=== PATIENT | female | born 1950 | race African-American/Black ===

== ENCOUNTER 2017-01-25 11:00 | Day surgery (SDC) | payer BC ==
[~2017-01-25] VITALS: Ht 167.6 cm; Wt 110.0 kg
[2017-01-25] VITALS (9 sets, daily range): BP systolic 132–178; BP diastolic 84–97; PULSE 68–82; RESP 16–20; TEMP 98–98.9; O2SAT 97–100
[~2017-01-25 11:00] MED LIST: CLON0.2T PO; FEMA2.5T PO; LABE200T2 PO; LISI10TA PO; LORA-392 PO; NIFE1TAB86 PO; OXYC5 PO; VITA200017 OR
[2017-01-25] MEDS ORDERED: METO-338 PO (11:57)
[2017-01-25] MEDS ORDERED: LETR2.5T (11:57)
[2017-01-25] MEDS ORDERED: CLON0.2T PO (11:57)
[2017-01-25] MEDS ORDERED: HYDR25TA5 PO (11:57)
[2017-01-25] MEDS ORDERED: TRIA37.5 PO (11:57)
[2017-01-25] MEDS ORDERED: ASPI81CH CHEW (11:57)
[2017-01-25] MEDS ORDERED: AMLO5 PO (11:57)
[2017-01-25] MEDS ORDERED: VENL225T PO (11:57)
[2017-01-25] MEDS ORDERED: HYDR-3801 PO (11:57)
[2017-01-25] MEDS ORDERED: VALS1TAB70 PO (11:57)
[2017-01-25 12:07] LABS: AUTOMATED NEUTROPHIL # 7.7 TH/MM3 (1.8-7.7); BASOPHIL # 0.1 TH/MM3 (0-0.2); BASOPHIL % 0.5 % (0.0-2.0); EOSINOPHIL # 0.1 TH/MM3 (0-0.4); EOSINOPHIL % 0.8 % (0.0-4.0); HEMATOCRIT 37.9 % (35.0-46.0); HEMO FLAGS DIFF FINAL; LYMPH % 18.1 % (9.0-44.0); LYMPHOCYTE # 1.8 TH/MM3 (1.0-4.8); MEAN CELL VOLUME 76.6 FL (80.0-100.0); MEAN CORPUSCULAR HEMOGLOBIN 25.3 PG (27.0-34.0); NEUT % 76.6 % (16.0-70.0); PLATELET COUNT 347 TH/MM3 (150-450); RED BLOOD COUNT 4.95 MIL/MM3 (4.00-5.30); RED CELL DISTRIBUTION WIDTH 17.3 % (11.6-17.2); WHITE BLOOD COUNT 10.1 TH/MM3 (4.0-11.0)
[2017-01-25 12:15] LABS: PROTHROMBIN TIME - PATIENT 10.7 SEC (9.8-11.6)
[2017-01-25 12:39] LABS: BICARBONATE 25.2 MEQ/L (21.0-32.0)
[2017-01-25 12:40] LABS: POTASSIUM 5.1 MEQ/L (3.5-5.1)
[2017-01-25] MEDS ORDERED: HEPARIN-NS/PF INJ 500 ML ONE (13:15)
[2017-01-25] MEDS ORDERED: MIDAZOLAM HCL 2 MG/2 ML VIAL ONE ×3 (13:17→14:03)
[2017-01-25] MEDS ORDERED: HEPARIN SODIUM - IV 10,000 UNITS/10 ML VIAL ONE (13:40)
[2017-01-25] MEDS ORDERED: CLOPIDOGREL 300 MG TAB ONE (14:03)
[2017-01-25] MEDS ORDERED: TIROFIBAN INFUSION INJ 250 ML IV ONE (14:03)
[2017-01-25] MEDS ORDERED: MISC INFORMATION XX ONE (14:15)
[2017-01-25] MEDS ORDERED: SODIUM CHLORIDE 0.9% FLUSH 10 ML FLUSH IV FLUSH PRN (14:15)
--- NOTE | 2017-01-25 14:29 | CATHPROC ---
[facility] HIS Report Study Information Study Number Admission Scheduled Start Study Start [id number] Jan 25 2017 11:00AM 01/25/2017 Jan 25 2017 1:07PM [place] [facility] Cardiac Catheterization Admit Source Facility Department Other [facility] - Covered [facility] Physician and Clinical Staff Initial Camacho Sterling Cinder Worker Adriana Lopez,RN Recorder Obed Leahy RCIS(BS) Scrub Sohail Craig RCIS(BS) Procedures Performed Procedure Location (Site) Vessel Name Coronary Angiograms LCA Left Coronary Coronary Angiograms RCA Right Coronary Drug Eluting Inflatio RCA Mid Right Coronary LV Gram-hand inj. LV LV Ventricle PTCA RCA Mid Right Coronary Wire insertion Fem Art (right) Femoral Art Equipment Time Pattern Layout Worker Description Size Mfg Part Number Used/Scraped [id number] 13:42 [employer] WIRE, [place] PROWATER 180CM 180CM Used *[id number] CATHETER, FR5 SWAN MAMTA 13:23 MEJIA LOPEZ FR 5 [id number] *[id number] Used MONITOR TRANSDUCER, TRUWAVE [id number] 13:23 MEJIA LOPEZ * Used W/STOCKCOCK *[id number] [id number] *[id number] 538-422 *[id number] *[id number] [id number] *[id number] 13:23 MEDLINE INDUSTRIES PACK, CCL CUSTOM * Used *[id number] 13:23 MEDLINE PACER PEN, SKIN DUAL W/ RULER * Used *[id number] 13:53 MEDTRONIC BALLOON, 1.5 X 10MM EUPHORA 10MM Used *[id number] 13:50 MEDTRONIC BALLOON, 2.0 X 10MM EUPHORA 10MM Used *[id number] BALLOON, 2.25 X 10MM [id number] 13:45 MEDTRONIC 10MM Used EUPHORA *[id number] 14:01 MEDTRONIC STENT, 2.5 12 INTEGRITY 2.5 12 Used *[id number] 13:43 MEDTRONIC STENT, 2.5 8 INTEGRITY 2.5 8 Used *[id number] 13:55 [employer]upon MEDICAL 30 HARDIK INDEFLATOR Used *[id number] 13:23 [employer] MEDICAL SHEATH, FR5.5 PRELUDE 11CM FR 5.5 Used [id number] 13:43 [employer] MEDICAL SHEATH, FR6.5 PRELUDE 11CM FR 6.5 038ACT Used *[id number] 13:23 [employer] MEDICAL WIRE, 3MMJ .035 180CM 180CM Used *[id number] 13:23 NAMIC MANIFOLD, 4 PORT * Used *[id number] 13:23 NYCOMED OMNIPAQUE, 350 MG, 150ML 150ML [id number] Used [id number] 13:23 MAGUIRE MEDICAL BLANKET,WARM AIR CCL * Used *[id number] 13:23 TERUMO MEDICAL SHEATH, FR4 TERUMO (10CM) FR 4 [id number] Used Equipment Model, Serial, Lot Number and Expiration Data Description Model Number Serial Number Lot Number Expiration Date STENT, 2.5 12 INTEGRITY [id number] 09-15-2018 History: Current Medications Medication Dosage/Unit Route Frequency Last Date/Time Taken Beta Keisha ASA Statins (any) History: Allergies Allergy Reaction No Known Allergies NKA History: Risk Factors Family History of Hypertension Dyslipidemia Previous [place] Previous Heart Failure Premature CAD Yes Yes No No Yes Prior Valve Prior PCI Prior CABG Surgery No No No Cerebrovascular Peripheral Artery Chronic Lung On Dialysis Diabetes Disease Disease Disease No No No No No History: Symptoms/Diagnosis Selection Items Chest pain History: Stress Tests Stress or Imaging Studies Performed No History: Other Current Smoker No Labs Hgb (g/dl) Hct (%) RBC (MIL/MM3) WBC (l/cumm) Platelets (thousands) 11.60-17.00 35.00-51.00 4.00-5.90 4.00-11.00 150.00-450.00 12.5 37.9 4.9 10.1 347 Glucose (mg/dl) BUN (mg/dl) Creatinine (mg/dl) BUN:Creatinine (1:x) 74.00-106.00 7.00-18.00 0.50-1.30 10.00-20.00 239 26 1.0 26 Na (meq/l) K (meq/l) 136.00-145.00 3.50-5.10 137 5.1 CPK-MB (ng/ML) 0.50-3.60 Not Drawn Medication Medication Total Dose (Bolus/Oral) Medication Total Dosage/Unit 1% XYLOCAINE 20 mL AGGRASTAT BOLUS 54 meq/kg HEPARIN 7800 units NTG (IC) 200 mcg PLAVIX 600 mg VERSED 6 mg Medications (Bolus/Oral) Medication Time Given Dosage/Unit Administered By Reason VERSED 01/25/2017 1:26:00 PM 2 mg William Lopeza 2 mg VERSED given in lab by Adriana Lopez RN in Right Wrist via Peripheral IV. Ordered by Camacho Martell. 1% XYLOCAINE 01/25/2017 1:27:26 PM 20 mL Camacho Ch 20 mL 1% XYLOCAINE given in lab by Camacho Ch in Right Groin via Subcutaneous. Ordered by Camacho Esposito. VERSED 01/25/2017 1:37:14 PM 1 mg Stephen Lopezantha 1 mg VERSED given in lab by Adriana Lopez RN in Right Wrist via Peripheral IV. Ordered by Camacho Martell. HEPARIN 01/25/2017 1:41:40 PM 7800 units William Lopeza 7800 units HEPARIN given in lab by Adriana Lopez RN in Right Wrist via Peripheral IV. Ordered by Camacho Ch. VERSED 01/25/2017 1:42:54 PM 1 mg Stephen Lopezantha 1 mg VERSED given in lab by Adriana Lopez RN in Right Wrist via Peripheral IV. Ordered by Camacho Martell. VERSED 01/25/2017 1:43:00 PM 1 mg John, Adriana 1 mg VERSED given in lab by Adriana Lopez RN in Right Wrist via Peripheral IV. Ordered by Camacho Martell. NTG (IC) 01/25/2017 1:46:32 PM 200 mcg Camacho Ch 200 mcg NTG (IC) given in lab by Camacho Ch via Intra-coronary. Ordered by Camacho Ch. VERSED 01/25/2017 2:04:00 PM 1 mg Stephen Lopezantha 1 mg VERSED given in lab by Adriana Lopez RN in Right Wrist via Peripheral IV. Ordered by Camacho Martell. PLAVIX 01/25/2017 2:06:00 PM 600 mg William Lopeza 600 mg PLAVIX given in lab by Adriana Lopez RN via Oral. Ordered by Camacho Ch. AGGRASTAT BOLUS 01/25/2017 2:07:00 PM 54 meq/kg Adriana Lopez 54 meq/kg AGGRASTAT BOLUS given in lab by Adriana Lopez, AURELIANO in Right Wrist via Peripheral IV. [place] unt given = 6031.8 meq. Ordered by Camacho Ch. Medication (Drip) Medication Time Given Dosage/Unit Concentration/Unit Diluent (ml) Solution AGGRASTAT DRIP 01/25/2017 2:10:00 PM 0.145 mcg/kg/min 12.5 mg 250 NaCl .9 0.145 mcg/kg/min AGGRASTAT DRIP given in lab by Adriana Lopez, AURELIANO in Right Wrist via Peripheral I V. Pump/Drip Flow = 19.5 ml/hr using NaCl .9 with a concentration of 12.5 mg in 250 ml. Ordered by Camacho Ch. IV Solutions 01/25/2017 1:07:43 PM 0 mL (IV) 500 NaCl .9 Patient arrived on IV Solutions in Right Wrist via Peripheral IV. Pump/Drip Flow = 20 ml/hr using NaC l .9. Ordered by Camacho Ch. Initial Case Assessment Cardiovascular HR Rhythm NIBP Chest Pain 74 SR 156/94 0 Edema Present Skin color Skin None Normal Warm Dry Circulatory - Right Pulses Dorsalis Pedis Femoral 2 2 Scale (0,1,2,3,4,d) Circulatory - Left Pulses Dorsalis Pedis Femoral 2 2 Scale (0,1,2,3,4,d) Circulatory - Lower Extremities Color Lower Right Color Lower Left Normal Normal Neurological State Oriented to time-place- Alert Moves all extremities person Respiration - General Respiration Rate SpO2 (%) (B/min) 21 96 Chronological Log Time Study Chronological Log 13:07:29 Patient arrived via Bed. 13:07:29 Patient Name, D.O.B, / Armband Verified By R.N. 13:07:30 Consent signed by the physician and the patient and verified by the [facility] staff. 13:07:31 Pre-op and post- op instructions given; patient acknowledges understanding of instructions. 13:07:32 Verbal Stimulation=2 Physical Stimulation=2 Airway=2 Respiration=2 TOTAL=8. (0=absent, 1=li mited, 2=present) 13:07:34 Patient has been NPO for Less than 6Hrs. 13:07:35 Skin Breakdown- 13:07:38 Patient Warmer Placed on the Table. 13:07:43 A # 22 IV was noted in the Wrist (right). Grade = 0 Patient arrived on IV Solutions in Right Wrist via Peripheral IV. Pump/Drip Flow = 20 ml/hr usi ng NaCl .9. Ordered by 13::43 Camacho Ch. 13::44 History and physical on the chart or being dictated. Assessment: Initial Case, HR=74 BPM, Rhythm=SR, HXDN=570/94 mmhg, Chest Pain=0, Edema=None, Col or=Normal, Skin = Warm, Dry Right Pulses: Bakari Ped=2, Femoral=2 Left Pulses: Bakari Ped=2, Femoral=2 13:07:45 Lower Right Extremities: Color=Normal Lower Left Extremities: Color=Normal Neurological: State=Alert, Ox3, CABRAL Respiration: Resp=21 B/min, SpO2=96 % 13:15:10 Reference ECG taken 13:15:17 Right groin prepped with 2% chlorhexidine, and with a 3 min. waiting time. Vitals capture started with the following parameters, Patient=Adult, Interval=5 min, Initial Pr yoonoo=895 mmHg, 13:18:58 Deflation Rate=5 mmHg 13:19:37 HR=74 bpm, RWCI=604/94 mmhg, SpO2=96.0 %, Resp=10 B/min, Pain=0, Bernie=10, Juárez=2 13:22:41 MD arrived. 13:24:30 Pressure channel 1 zeroed. 13:25:21 HR=74 bpm, DETB=041/145 mmhg, SpO2=96.0 %, Resp=11 B/min, Pain=0, Bernie=10, Juárez=2 13:26:00 2 mg VERSED given in lab by Adriana Lopez, RN in Right Wrist via Peripheral IV. Ordered by Camacho Ch. Time Out. Correct patient, correct procedure,correct physician, power injector not loaded with contrast with surgical 13::58 team present. Time Out Concurred by MD, individual staff in procedure 13::59 Case Start 20 mL 1% XYLOCAINE given in lab by Camacho Ch in Right Groin via Subcutaneous. Ordered by Jing 13::26 Camacho. 13:29:03 Access site was Right Femoral Artery. 13:29:24 Access site was Right Femoral Vein. 13:29:36 A SHEATH, FR5.5 PRELUDE 11CM FR 5.5 was advanced into the Fem Vein (right) using the Percut aneous technique. 13:29:47 HR=74 bpm, YHFQ=459/104 mmhg, SpO2=95.0 %, Resp=9 B/min, Pain=0, Bernie=10, Juárez=2 13:29:56 A SHEATH, FR4 TERUMO (10CM) FR 4 was advanced into the Fem Art (right) using the Percutaneo us technique. A CATHETER, FR5 SWAN MAMTA MONITOR FR 5 was advanced over a wire. OMNIPAQUE, 350 MG, 150ML 150ML was 13:30:31 used for injections. 13:30:43 Saturation: Site=FA (Femoral Artery) , O2=96.4 %, Hgb=12.5 gm/dl, Condition=Condition 1. Us ed in calculation. Recorded Pressure: PCW, HR=74, Condition=Condition 1 13:31:16 (Pulmonary Capillary Wedge) PCW Recorded Pressure: MPA, HR=73, Condition=Condition 1 13:31:33 (Main Pulmonary Artery) MPA //16 Recorded Pressure: RV, HR=73, Condition=Condition 1 13:32:21 (Right Ventricle) RV 25//7 Recorded Pressure: RA, HR=74, Condition=Condition 1 13:32:37 (Right Atrium) RA 8/6/4 13:32:40 Saturation: Site=PA (Pulmonary Artery) , O2=70 %, Hgb=12.5 gm/dl, Condition=Condition 1. Us ed in calculation. 13:33:18 Saturation: Site=RA (Right Atrium) , O2=68.2 %, Hgb=12.5 gm/dl, Condition=Condition 1. Used in calculation. 13:33:53 [place] Mamta Catheter Removed A JR 4.0 INFINITI CATHETER FR 4 was advanced over a wire. OMNIPAQUE, 350 MG, 150ML 150ML was us ed for 13:33:58 injections. Recorded Pressure: LV, HR=74, Condition=Condition 1 13:34:34 (Left Ventricle) LV 155/7/12 Recorded Pressure: LV, Ao, HR=75, Condition=Condition 1 13:34:48 (Left Ventricle) LV 156/-6/10, (Aorta) Ao 153/72/113 13:34:52 The LV was manually injected with 8 cc's and visualized. OMNIPAQUE, 350 MG, 150ML 150ML use d. 13:35:11 HR=74 bpm, FDLP=551/96 mmhg, SpO2=96.0 %, Resp=13 B/min, Pain=0, Bernie=10, Juárez=2 Recorded Pressure: Ao, HR=72, Condition=Condition 1 13:35:26 (Aorta) Ao 144/84/108 13:35:40 The RCA was injected and visualized at various angles. OMNIPAQUE, 350 MG, 150ML 150ML used . 13:35:56 Catheter was removed 13:37:14 1 mg VERSED given in lab by Adriana Lopez RN in Right Wrist via Peripheral IV. Ordered by Camacho Ch. A JL 5.0 INFINITI CATHETER FR 4 was advanced over a wire. OMNIPAQUE, 350 MG, 150ML 150ML was us ed for 13:39:01 injections. 13:39:13 The LCA was injected and visualized at various angles. OMNIPAQUE, 350 MG, 150ML 150ML used . 13:39:37 HR=74 bpm, HNFS=677/97 mmhg, SpO2=98.0 %, Resp=9 B/min, Pain=0, Bernie=10, Juárez=2 13:39:55 Catheter was removed A SHEATH, FR6.5 PRELUDE 11CM FR 6.5 was exchanged in the Fem Art (right). This was necessary in order to 13:39:58 accomodate a larger catheter. 7800 units HEPARIN given in lab by Adriana Lopez RN in Right Wrist via Peripheral IV. Orde red by Jing, 13:41:40 Camacho. 13:42:54 1 mg VERSED given in lab by Adriana Lopez RN in Right Wrist via Peripheral IV. Ordered by Camacho Ch. 13:43:00 1 mg VERSED given in lab by Adriana Lopez RN in Right Wrist via Peripheral IV. Ordered by Camacho Ch. A JR 4.0 GUIDE CATHETER FR 6 was advanced over a wire. OMNIPAQUE, 350 MG, 150ML 150ML was used for 13:43:03 injections. 13:43:24 A WIRE, ASAHI PROWATER 180CM 180CM was inserted via Fem Art (right). A STENT, 2.5 8 INTEGRITY 2.5 8 was advanced through a JR 4.0 GUIDE CATHETER FR 6 over a WIRE, A JENIFER 13:44:00 PROWATER 180CM 180CM. 13:44:40 HR=73 bpm, EWEL=578/90 mmhg, SpO2=97.0 %, Resp=15 B/min, Pain=0, Bernie=10, Juárez=2 13:45:00 Stent not deployed. Stent removed and intact. 13:46:32 200 mcg NTG (IC) given in lab by Camacho Ch via Intra-coronary. Ordered by Camacho Ch. A BALLOON, 2.0 X 10MM EUPHORA 10MM was inserted over WIRE, ASAHI PROWATER 180CM 180CM via the F em Art 13:47:56 (right). 13:49:23 Balloon Removed. 13:49:39 HR=77 bpm, NOCR=833/85 mmhg, SpO2=93.0 %, Resp=18 B/min, Pain=0, Bernie=10, Juárez=2 13:52:45 Balloon Removed. A BALLOON, 1.5 X 10MM EUPHORA 10MM was inserted over WIRE, ASAHI PROWATER 180CM 180CM via the F em Art 13:54:31 (right). A BALLOON, 1.5 X 10MM EUPHORA 10MM over a WIRE, ASAHI PROWATER 180CM 180CM in the RCA Mid was i nflated 13:54:36 using a 30 HARDIK INDEFLATOR at 13 hardik for 40 sec. 13:54:42 HR=75 bpm, KGAR=570/83 mmhg, SpO2=94.0 %, Resp=17 B/min, Pain=0, Bernie=10, Juárez=2 13:55:06 Activated Clotting Time Drawn 13:56:44 Balloon Removed. A BALLOON, 2.0 X 10MM EUPHORA 10MM was inserted over WIRE, ASAHI PROWATER 180CM 180CM via the F em Art 13:57:58 (right). 13:58:08 ACT (Normal Range 90-180) = 248 A BALLOON, 2.0 X 10MM EUPHORA 10MM over a WIRE, ASAHI PROWATER 180CM 180CM in the RCA Mid was i nflated 13:58:34 using a 30 HARDIK INDEFLATOR at 9 hardik for 25 sec. 14:00:02 Balloon Removed. 14:00:16 HR=75 bpm, MLNX=558/91 mmhg, SpO2=94.0 %, Resp=15 B/min, Pain=0, Bernie=10, Juárez=2 A STENT, 2.5 12 INTEGRITY 2.5 12 was advanced through a JR 4.0 GUIDE CATHETER FR 6 over a WIRE, ASAHI 14:01:49 PROWATER 180CM 180CM. A STENT, 2.5 12 INTEGRITY 2.5 12 was deployed using a 30 HARDIK INDEFLATOR at 9 atmospheres for 30 seconds in 14:01:51 the RCA Mid. 14:03:02 Delivery device removed 14:03:27 Wire removed 14:03:36 Catheter(s) removed without difficulty 14:04:00 1 mg VERSED given in lab by Adriana Lopez RN in Right Wrist via Peripheral IV. Ordere d by Camacho Ch. 14:05:11 HR=74 bpm, YCYE=580/92 mmhg, SpO2=97.0 %, Resp=11 B/min, Pain=0, Bernie=10, Juárez=2 14:06:00 600 mg PLAVIX given in lab by Adriana Lopez, AURELIANO via Oral. Ordered by Camacho Ch. 14:06:29 In the Fem Art (right) the SHEATH, FR6.5 PRELUDE 11CM FR 6.[address] by Camacho Esposito. 54 meq/kg AGGRASTAT BOLUS given in lab by Adriana Lopez, AURELIANO in Right Wrist via Peripheral IV. Amount given 14:07:00 = 6031.8 meq. Ordered by Camacho Ch. 14:07:19 Sterile dressing applied to site 14:07:20 No case complications noted. 14:07:20 Cine recording checked. 14:07:24 Bedside Report will be given. 14:07:25 Implantable Device card placed in patient's chart. 14:07:28 Contrast Scanned 14:07:31 A Left and Right Heart Cath was performed. 14:07:33 Patient moved to stretcher 14:09:46 HR=73 bpm, BMHG=828/103 mmhg, SpO2=93.0 %, Resp=16 B/min, Pain=0, Bernie=10, Juárez=2 0.145 mcg/kg/min AGGRASTAT DRIP given in lab by Adriana Lopez RN in Right Wrist via Perip heral IV. 14:10:00 Pump/Drip Flow = 19.5 ml/hr using NaCl .9 with a concentration of 12.5 mg in 250 ml. Ordered b y Camacho Ch. End Study - Contrast Media Used In Study Contrast Total Opened (mL) Total Used (mL) Total Wasted (mL) Omnipaque 130 130 0 End Study - Maximum Contrast Load Max Contrast Load (mL) 558.4 End Study - Radiation Exposure Fluoro Time (minutes) 11.0 End Study - Patient Disposition Complications Transferred To Interventional Outcome No Telemetry Bed successful
[2017-01-25] MEDS ORDERED: CLOPIDOGREL 300 MG TAB PO ONE (14:30)
[2017-01-25] MEDS: ASPIRIN 81 MG CHEW TAB PO SCH (15:22)
[2017-01-25] MEDS ORDERED: IOHEXOL 350 MG/ML 100 ML BTL (for Cath Lab) IV ONE (16:42)
[2017-01-25] MEDS ORDERED: IOHEXOL 350 MG/ML 50 ML BTL (for Cath Lab) IV ONE (16:42)
[2017-01-25] MEDS: hydrALAZINE HCL 100 MG TAB PO SCH (17:59)
[2017-01-25] MEDS: cloNIDine HCL 0.2 MG TAB PO SCH (20:39)
[2017-01-25] MEDS: SODIUM CHLORIDE 0.9% FLUSH 10 ML FLUSH IV FLUSH SCH (20:39)
[2017-01-25] MEDS: METOPROLOL TARTRATE 100 MG TAB PO SCH (20:39)
[2017-01-25] MEDS: TIROFIBAN INFUSION INJ 250 ML IV SCH (23:54)
[2017-01-26] VITALS (16 sets, daily range): BP systolic 112–159; BP diastolic 70–95; PULSE 58–74; RESP 18; TEMP 98.6–99.1; O2SAT 91–98
[2017-01-26] MEDS: TIROFIBAN INFUSION INJ 250 ML IV SCH (02:42)
[2017-01-26 05:44] LABS: BASOPHIL % 0.3 % (0.0-2.0); EOSINOPHIL # 0.2 TH/MM3 (0-0.4); EOSINOPHIL % 1.5 % (0.0-4.0); HEMATOCRIT 34.4 % (35.0-46.0); HEMO FLAGS DIFF FINAL; LYMPHOCYTE # 3.2 TH/MM3 (1.0-4.8); MEAN CELL VOLUME 76.9 FL (80.0-100.0); MEAN CORPUSCULAR HEMOGLOBIN 25.1 PG (27.0-34.0); MEAN CORPUSCULAR HGB CONC 32.7 % (32.0-36.0); MONO % 5.4 % (0.0-8.0); NEUT % 63.8 % (16.0-70.0); PLATELET COUNT 324 TH/MM3 (150-450); RED BLOOD COUNT 4.47 MIL/MM3 (4.00-5.30); RED CELL DISTRIBUTION WIDTH 17.3 % (11.6-17.2)
[2017-01-26 06:11] LABS: BICARBONATE 27.5 MEQ/L (21.0-32.0); HDL CHOLESTEROL 39.2 MG/DL (40.0-60.0); POTASSIUM 3.6 MEQ/L (3.5-5.1)
[2017-01-26] MEDS: cloNIDine HCL 0.2 MG TAB PO SCH (08:23)
[2017-01-26] MEDS: METOPROLOL TARTRATE 100 MG TAB PO SCH (08:23)
[2017-01-26] MEDS: ASPIRIN 81 MG CHEW TAB PO SCH (08:24)
[2017-01-26] MEDS: SODIUM CHLORIDE 0.9% FLUSH 10 ML FLUSH IV FLUSH SCH (08:24)
[2017-01-26] MEDS ORDERED: amLODIPine BESYLATE 5 MG TAB PO SCH (09:00)
[2017-01-26] MEDS ORDERED: TRIAMTERENE/HCTZ 37.5 MG/25 MG TAB PO SCH (09:00)
[2017-01-26] MEDS ORDERED: ASPIRIN 81 MG CHEW TAB PO SCH (09:00)
[2017-01-26] MEDS ORDERED: CLOPIDOGREL 75 MG TAB PO SCH (09:00)
[2017-01-26] MEDS ORDERED: HYDROCHLOROTHIAZIDE 25 MG TAB PO SCH (09:00)
[2017-01-26] MEDS ORDERED: VALSARTAN 160 MG TAB PO SCH (09:00)
[2017-01-26] MEDS ORDERED: VENLAFAXINE HCL XR 75 MG CAP PO SCH (09:00)
[2017-01-26] MEDS: hydrALAZINE HCL 100 MG TAB PO SCH (09:40)
[2017-01-26] MEDS ORDERED: PLAV75TA29 (13:18)
--- NOTE | 2017-01-26 17:10 | EKG ---
Date Performed: 01/25/2017 Time Performed: 11:57:30 PTAGE: 66 years EKG: Sinus rhythm . Normal ECG PREVIOUS TRACING : 11/25/2012 09.06 Compared to prior tracing no significant change DOCTOR: Camacho Ch Interpretating Date/Time 01/26/2017 17:09:10
--- NOTE | 2017-01-26 17:10 | EKG ---
Date Performed: 01/26/2017 Time Performed: 05:14:58 PTAGE: 66 years EKG: Sinus rhythm Short QT interval LVH with secondary repolarization abnormality Lateral ST-T changes may be due to h ypertrophy and/or ischemia Abnormal ECG PREVIOUS TRACING : 01/25/2017 14.57 Compared to prior tracing no significant change DOCTOR: Camacho Ch Interpretating Date/Time 01/26/2017 17:09:32
--- NOTE | 2017-01-26 17:10 | EKG ---
Date Performed: 01/25/2017 Time Performed: 14:57:42 PTAGE: 66 years EKG: Sinus rhythm . Normal ECG PREVIOUS TRACING : 01/25/2017 11.57 Compared to prior tracing no significant change DOCTOR: Camacho Ch Interpretating Date/Time 01/26/2017 17:09:20
--- NOTE | 2017-01-27 13:37 | MA ---
cc: GIO MUÑOZ M.D. DATE 01/25/2017 PROCEDURE PERFORMED Right heart catheterization, left heart catheterization, left ventriculography, coronary angiography INDICATIONS New onset cardiac symptoms of severe dyspnea on exertion associated with moderate chest pain, unstable angina, [employer] cardiovascular society class III angina, [place] Heart Association class III congestive heart failure, dysrhythmia, coronary artery disease and hypertension. PROCEDURAL STATEMENT The patient was brought to the cardiac catheterization laboratory, prepped and draped in the usual sterile fashion. 10 cc of 1% lidocaine was used to locally anesthetize the right common femoral artery and right common femoral vein. A 5-Vincentian sheath placed in the right common femoral vein. A 4-Vincentian sheath placed in the right common femoral artery. A right heart catheterization was performed first with a following findings: Pulmonary capillary wedge pressure 13/10-9 PA pressure 23/9-16 LV pressure 25/4-7 RA pressure 8/6-4 Cardiac output by Lia 6.1 liters per minute. Cardiac index by Lia 2.8 liters per meter squared per minute. SVR 1364. FA sat on room air 96.4%. PA sat 70% RA sat 68.2% Left heart catheterization was then performed with the following findings: LV pressures 160/12-14 Ejection fraction 60% Right coronary artery is dominant. The proximal segment is probably at least a 3.5 mm diameter vessel, then it abruptly tapers to probably a 2.5 mm vessel. In the proximal mid segment there is a long 99% stenosis followed by 40-50% stenosis just beyond this. In the LAD, there is a distal 50% stenosis as well. The 6-Vincentian sheath exchanged for a 4-Vincentian sheath. 70 units/kilo of heparin was given, ACT 248. A 6-Vincentian JR-4 guide, a 0.014 Prowater guidewire were used to cross the RCA stenosis. I directly stented the lesion with a 25 x 8 Integrity balloon, the stent would not cross the lesion due to the stenosis severity. I then attempted to predilate the lesion with a 225 x 10 Compliant balloon and again the balloon would not cross the lesion due to stenosis severity. I then attempted to cross the lesion with a 2.0 x 10 Compliant Euphora balloon and this balloon also would not cross the lesion again due to vessel stenosis. Also, I did a fluoroscopic angiogram which showed occlusion of the vessel with the nose of the balloon at the lesion site. Then with difficulty, I was able to deliver a 1.5 x 10 Euphora Compliant balloon across the lesion and predilation the lesion with one inflation to 14 atmospheres for 20 seconds. I was then able to move the balloon freely across the lesion and more distally. I then predilated the lesion with a 2.0 x 10 Euphora Compliant balloon with one inflation to 8 atmospheres for 20 seconds. This resulted in improvement in vessel diameter with improved perfusion. Note, prior to angioplasty, I did infuse 200 micrograms of intracoronary nitroglycerine which showed no improvement in vessel stenosis severity. Finally, I delivered a 2.5 x 12 Integrity stent with one inflation to 9 atmospheres for 20 seconds. The stenosis went from 99% to 0% with MARE-III flow. Also there is a distal marginal vessel with a distal marginal vessel that has probably 70% disease at the ostium of the more medial branch. Angle of separation is probably 30-45 degrees. It is a relatively small vessel probably 2-5 mm at that point. CONCLUSION 1. Unstable angina. [place] Cardiovascular [employer] Class III angina, dysrhythmia and palpitation. Symptoms of congestive heart failure, culprit 99% stenosis in the proximal mid right coronary artery which is dominant as detailed above. 2. Otherwise note moderate proximal LAD 40-50% and proximal left circ 50-60% as detailed above. 3. Normal LV systolic function with an EF of 60%. 4. Normal right heart cath pressures as detailed above. 5. Successful PCI of the proximal mid right coronary from 99% to 0% with MARE-III flow. RECOMMENDATIONS 1. Recommend Plavix 600 mg p.o. load then 75 mg a day for 12/15 months. 2. Aspirin 162 mg daily 3. Aggrastat drip per protocol. 4. Medical management of coronary artery disease. 5. Cardiac risk factor modification. 6. Continue Lipitor 40 mg at bedtime. 7. Treat LVL per NCP guidelines. MD VAMIS Lanier/OMI /2:14 PM /1:21 PM
== END 2017-01-26 13:33 | disposition home or self-care (01) ==
LOC: HDIC 11:00 → HDOC 11:00 → HDIC 14:16 → HDOC 14:16 → UNDOADMOB 14:17 → HCIN 14:17 → HDOC 01-26 13:33
PROVIDERS: ATTEND Internal Medicine Interventional Cardiology
DX: I20.0 Unstable angina (principal); I25.10 Atherosclerotic heart disease of native coronary artery without angina pectoris; I11.0 Hypertensive heart disease with heart failure; I50.9 Heart failure, unspecified; I49.9 Cardiac arrhythmia, unspecified; R00.0 Tachycardia, unspecified
CPT/HCPCS: 80048; 80061; 82550; 82810; 85002; 85025; 85610; 92928; 93005; 93453; C1725; C1769; C1876; C1887; C1893; J1644; J2250; J3010; J3246; 93458; Q9967

== ENCOUNTER 2017-03-10 10:12 | Observation (INO) | payer BC ==
[~2017-03-10] VITALS: Ht 170.2 cm; Wt 115.0 kg
[2017-03-10] VITALS (9 sets, daily range): BP systolic 134–164; BP diastolic 86–113; PULSE 64–85; RESP 18; TEMP 97.7–98.7; O2SAT 97–100
[~2017-03-10 10:12] MED LIST changes: +AMLO5 PO; +ASPI81CH PO; -FEMA2.5T PO; +HYDR-3801 PO; +HYDR25TA5 PO; -LABE200T2 PO; +LETR2.5T PO; -LISI10TA PO; -LORA-392 PO; +METO-338 PO; -NIFE1TAB86 PO; -OXYC5 PO; +PLAV75TA29; +TRIA37.5 PO; +VALS1TAB70 PO; +VENL225T PO; -VITA200017 OR
[2017-03-10] MEDS ORDERED: DOXA1TAB34 PO (11:08)
[2017-03-10] MEDS ORDERED: LIPI40TA PO (11:08)
[2017-03-10] MEDS ORDERED: CORE25TA PO (11:08)
[2017-03-10 11:13] LABS: AUTOMATED NEUTROPHIL # 5.5 TH/MM3 (1.8-7.7); BASOPHIL % 0.3 % (0.0-2.0); EOSINOPHIL # 0.2 TH/MM3 (0-0.4); EOSINOPHIL % 2.7 % (0.0-4.0); HEMATOCRIT 39.7 % (35.0-46.0); HEMO FLAGS DIFF FINAL; LYMPHOCYTE # 2.2 TH/MM3 (1.0-4.8); MEAN CELL VOLUME 78.9 FL (80.0-100.0); MEAN CORPUSCULAR HEMOGLOBIN 24.9 PG (27.0-34.0); MEAN CORPUSCULAR HGB CONC 31.5 % (32.0-36.0); PLATELET COUNT 344 TH/MM3 (150-450); RED BLOOD COUNT 5.03 MIL/MM3 (4.00-5.30); RED CELL DISTRIBUTION WIDTH 16.2 % (11.6-17.2); WHITE BLOOD COUNT 8.3 TH/MM3 (4.0-11.0)
[2017-03-10 11:22] LABS: INTERNATIONAL NORMALIZED RATIO 0.9 RATIO; PROTHROMBIN TIME - PATIENT 10.2 SEC (9.8-11.6)
[2017-03-10 11:31] LABS: BICARBONATE 27.7 MEQ/L (21.0-32.0); POTASSIUM 3.7 MEQ/L (3.5-5.1)
[2017-03-10] MEDS ORDERED: ASPIRIN 81 MG CHEW TAB PO SCH ×2 (12:00→21:15)
[2017-03-10] MEDS ORDERED: IOHEXOL 350 MG/ML 100 ML BTL (for Cath Lab) OTHER ONE (12:20)
[2017-03-10] MEDS ORDERED: IOHEXOL 350 MG/ML 50 ML BTL (for Cath Lab) OTHER ONE (12:20)
[2017-03-10] MEDS ORDERED: HEPARIN-NS/PF INJ 500 ML ONE (12:33)
[2017-03-10] MEDS ORDERED: MIDAZOLAM HCL 2 MG/2 ML VIAL ONE ×2 (12:34→13:32)
[2017-03-10] MEDS ORDERED: NITROGLYCERIN 2% OINT 1 GM PACKET ONE (13:20)
[2017-03-10] MEDS ORDERED: HEPARIN SODIUM - IV 10,000 UNITS/10 ML VIAL ONE (13:27)
[2017-03-10] MEDS ORDERED: ADENOSINE STRESS TEST INJ 90 MG/30 ML VIAL ONE (13:29)
[2017-03-10] MEDS ORDERED: TIROFIBAN INFUSION INJ 250 ML IV ONE (13:55)
[2017-03-10] MEDS ORDERED: CLOPIDOGREL 300 MG TAB ONE (13:58)
[2017-03-10] MEDS: TIROFIBAN INFUSION INJ 250 ML IV SCH ×2 (14:06→22:13)
[2017-03-10] MEDS ORDERED: SODIUM CHLORIDE 0.9% FLUSH 10 ML FLUSH PRN (14:15)
[2017-03-10] MEDS ORDERED: CLOPIDOGREL 300 MG TAB PO ONE (14:15)
[2017-03-10] MEDS ORDERED: MISC INFORMATION XX ONE (14:15)
[2017-03-10] MEDS ORDERED: BACITRACIN OINT 0.9 GM PKT TOP ONE (14:15)
--- NOTE | 2017-03-10 14:25 | CATHPROC ---
[employer] HIS Report Study Information Study Number Admission Scheduled Start Study Start [id number] Mar 10 2017 10:12AM 03/10/2017 Mar 10 2017 12:13PM [place] [facility] Cardiac Catheterization Admit Source Facility Department Other [facility] Physician and Clinical Staff Initial Camacho Sterling Batter Depositor Twan RN, Rayo Recorder Alicia Barroso,RT(R) Recorder Cathy Yap,MANAGER ENERGY TECH2 Scrub Eileen Tee,RT(R) Procedures Performed Procedure Location (Site) Vessel Name Coronary Angiograms LCA Left Coronary Coronary Angiograms RCA Right Coronary LV Gram-hand inj. LV LV Ventricle Stent LAD Dist Left Coronary Wire insertion Fem Art (right) Femoral Art Equipment Time Tag Press Operator Description Size Mfg Part Number Used/Scraped TRANSDUCER, TRUWAVE [id number] 13:20 Smart [employer]inations * Used W/STOCKCOCK *[id number] [id number] *[id number] [id number] *[id number] *[id number] 13:20 MEDLINE [employer] PACK, CCL CUSTOM * Used *[id number] 13:20 [employer] PACER PEN, SKIN DUAL W/ RULER * Used *[id number] 13:51 MEDTRONIC STENT, 3.0 12 INTEGRITY 3.0 12 Used *[id number] 13:52 Light Magic MEDICAL 30 HARDIK INDEFLATOR Used *[id number] 13:28 [employer] Magic MEDICAL SHEATH, FR6.5 PRELUDE 11CM FR 6.5 038ACT Used *[id number] 13:20 [employer] MEDICAL WIRE, 3MMJ .035 180CM 180CM Used *[id number] 13:20 NAMIC MANIFOLD, 4 PORT * Used *[id number] 13:20 NYCOMED OMNIPAQUE, 350 MG, 150ML 150ML [id number] Used [id number] 13:20 MAGUIRE MEDICAL BLANKET,WARM AIR CCL * Used *[id number] 13:20 TERUMO MEDICAL SHEATH, FR4 TERUMO (10CM) FR 4 Used *[id number] 13:41 VOLCANO PRIME WIRE, VERRATA 185CM 185CM [id number] *[id number] Used History: Current Medications Medication Dosage/Unit Route Frequency Last Date/Time Taken Beta Keisha ASA Statins (any) CLONIDINE HYDRALAZINE NORVASC HCTZ LOPRESSOR DIOVAN PLAVIX History: Allergies Allergy Reaction No Known Allergies NKA History: Risk Factors Family History of Hypertension Dyslipidemia Previous AL Previous Heart Failure Premature CAD Yes Yes No No Yes Prior Valve Prior PCI Prior PCIDate Prior CABG Surgery No Yes 01/25/2017 No Cerebrovascular Peripheral Artery Chronic Lung On Dialysis Diabetes Disease Disease Disease No No No No No History: Symptoms/Diagnosis Selection Items Chest pain DAVIS History: Stress Tests Stress or Imaging Studies Performed No History: Other Current Smoker No Labs Hgb (g/dl) Hct (%) WBC (l/cumm) Platelets (thousands) 11.60-17.00 35.00-51.00 4.00-11.00 150.00-450.00 12.5 39.7 8.3 344 Glucose (mg/dl) BUN (mg/dl) Creatinine (mg/dl) BUN:Creatinine (1:x) 74.00-106.00 7.00-18.00 0.50-1.30 10.00-20.00 217 15 0.7 21.4 Na (meq/l) K (meq/l) 136.00-145.00 3.50-5.10 138 3.7 INR (PTT:PT) 0.90-1.10 0.9 Medication Medication Total Dose (Bolus/Oral) Medication Total Dosage/Unit 1% XYLOCAINE 20 mL AGGRASTAT BOLUS 58 mL FENTANYL 25 mcg HEPARIN 8000 units NITRO OINTMENT 2 inches PLAVIX 600 mg VERSED 3 mg Medications (Bolus/Oral) Medication Time Given Dosage/Unit Administered By Reason FENTANYL 03/10/2017 1:14:35 PM 12.5 mcg Rayo Trent RN 12.5 mcg FENTANYL given in lab by Rayo Trent RN in Left Antecubital via Peripheral IV. Ordered by Camacho Myers. VERSED 03/10/2017 1:15:34 PM 1 mg Rayo Trent RN 1 mg VERSED given in lab by Rayo Trent RN in Left Antecubital via Peripheral IV. Ordered by Camacho Schwab. FENTANYL 03/10/2017 1:17:37 PM 12.5 mcg Rayo Trent RN 12.5 mcg FENTANYL given in lab by Rayo Trent RN in Left Antecubital via Peripheral IV. Ordered by Camacho Myers. 1% XYLOCAINE 03/10/2017 1:17:59 PM 20 mL Camacho Ch 20 mL 1% XYLOCAINE given in lab by Camacho Ch in Right Groin via Subcutaneous. Ordered by Camacho Esposito. NITRO OINTMENT 03/10/2017 1:20:39 PM 2 inches Rayo Trent RN 2 inches NITRO OINTMENT given in lab by Rayo Trent RN via Topical to left upper chest. Ordered by Camacho Myers. VERSED 03/10/2017 1:22:38 PM 1 mg Rayo Trent RN 1 mg VERSED given in lab by Rayo Trent RN in Left Antecubital via Peripheral IV. Ordered by Camacho Schwab. HEPARIN 03/10/2017 1:28:00 PM 8000 units Rayo Trent RN 8000 units HEPARIN given in lab by Rayo Trent RN in Left Antecubital via Peripheral IV. Ordered by Camacho Ch. VERSED 03/10/2017 1:40:25 PM 1 mg Rayo Trent RN 1 mg VERSED given in lab by Rayo Trent RN in Left Antecubital via Peripheral IV. Ordered by Camacho Schwab. AGGRASTAT BOLUS 03/10/2017 1:51:41 PM 58 mL Rayo Trent RN 58 mL AGGRASTAT BOLUS given in lab by Rayo Trent RN in Left Antecubital via Peripheral IV. Ordered by Camacho Ch. PLAVIX 03/10/2017 2:00:38 PM 600 mg Rayo Trent RN 600 mg PLAVIX given in lab by Rayo Trent RN via Oral. Ordered by Camacho Ch. Medication (Drip) Medication Time Given Dosage/Unit Concentration/Unit Diluent (ml) Solution ADENOSINE DRIP 03/10/2017 1:43:35 PM 142.587 mcg/kg/min 90 mg 80 NaCl .9 142.587 mcg/kg/min ADENOSINE DRIP given in lab by Rayo Trent RN in Left Antecubital via Peripheral IV. Pump/Drip Flow = 854 ml/hr using NaCl .9 with a concentration of 90 mg in 80 ml. Ordered by Camacho Ch. ADENOSINE DRIP 03/10/2017 1:46:45 PM 142.587 mcg/kg/min 90 mg 80 NaCl .9 142.587 mcg/kg/min ADENOSINE DRIP given in lab by Rayo Trent RN in Left Antecubital via Peripheral IV. Pump/Drip Flow = 854 ml/hr using NaCl .9 with a concentration of 90 mg in 80 ml. Ordered by Camacho Ch. Reason: As per physicians garcia bal order. Discontinued AGGRASTAT DRIP 03/10/2017 2:00:43 PM 0.15 mcg/kg/min 12.5 mg 250 NaCl .9 0.15 mcg/kg/min AGGRASTAT DRIP given in lab by Rayo Trent RN in Left Antecubital via Peripheral IV. Pump/Drip Flow = 20.21 ml/hr using NaCl .9 with a concentration of 12.5 mg in 250 ml. Ordered by Camacho Ch. Initial Case Assessment Final Case Assessment Cardiovascular HR Rhythm NIBP Chest Pain 70 nsr 199/93 3 Edema Present Skin color Skin None Normal Warm Circulatory - Right Pulses Dorsalis Pedis Femoral 2 1 Scale (0,1,2,3,4,d) Circulatory - Left Pulses Dorsalis Pedis Femoral 2 1 Scale (0,1,2,3,4,d) Neurological State Oriented to time-place- Alert Moves all extremities person Respiration - General Respiration Rate SpO2 (%) O2 (lpm) (B/min) 13 100 2 Chronological Log Time Study Chronological Log 12:20:09 Patient arrived via Bed. 12:20:11 Patient Name, D.O.B, / Armband Verified By R.N. 12:20:12 Consent signed by the physician and the patient and verified by the [facility] staff. 12:20:13 Pre-op and post- op instructions given; patient acknowledges understanding of instructions. 12:21:22 Patient has been NPO for Less than 6Hrs. 12:21:27 Skin Breakdown- none 12:21:33 Patient Warmer Placed on the Table. 12:21:34 History and physical on the chart or being dictated. 12:21:46 Assessment: Initial Case 12:22:39 A # 20 IV was noted in the Antecubital (left). Grade = patent 12:25:38 Patient SOB after moving to table, needed to sit up, put on 2L of O2. 12:30:01 HR=78 bpm, QRMJ=129/104 mmhg, SpO2=99.0 %, Resp=13 B/min 12:32:38 HR=72 bpm, AFGK=430/103 mmhg, SpO2=99.0 %, Resp=16 B/min 12:34:41 HR=81 bpm, XQAG=664/110 mmhg, GoU0=194.0 %, Resp=9 B/min 12:36:36 HR=79 bpm, MQMS=860/112 mmhg, QfW2=768.0 %, Resp=16 B/min 12:38:33 Bilateral groins prepped with 2% chlorhexidine, and draped after a 3 min. waiting time. 12:39:22 HR=76 bpm, MBUG=444/115 mmhg, ZpW5=859.0 %, Resp=10 B/min 12:40:18 Vitals capture stopped. Vitals capture started with the following parameters, Patient=Adult, Interval=5 min, Initial Pr dorwnb=529 mmHg, 12:41:00 Deflation Rate=5 mmHg, Cuff placed on Right Arm 12:41:16 MD paged 12:41:17 MD responded 12:42:28 HR=77 bpm, DZES=146/106 mmhg, XyT2=430.0 %, Resp=9 B/min 12:44:24 Pressure channel 1 zeroed. 12:48:31 HR=76 bpm, QWXC=637/115 mmhg, FsK2=851.0 %, Resp=10 B/min 12:52:45 HR=74 bpm, SGIH=960/110 mmhg, SpO2=99.0 %, Resp=9 B/min 12:56:18 Reference ECG taken 12:56:53 HR=79 bpm, ILUE=183/111 mmhg, AlG7=005.0 %, Resp=8 B/min 13:01:56 HR=78 bpm, MWGX=659/124 mmhg, YuJ8=479.0 %, Resp=11 B/min 13:06:49 HR=79 bpm, YYRC=578/114 mmhg, TsP0=201.0 %, Resp=8 B/min, Juárez=2 13:11:13 MD arrived. 13:12:47 HR=81 bpm, QNAE=095/52 mmhg, SlL8=961.0 %, Resp=20 B/min 13:14:35 12.5 mcg FENTANYL given in lab by Rayo Trent RN in Left Antecubital via Peripheral IV. Or dered by Camacho Ch. 13:15:34 1 mg VERSED given in lab by Rayo Trent RN in Left Antecubital via Peripheral IV. Ordered by Camacho Ch. Time Out. Correct patient, correct procedure,correct physician, ,power injector loaded or not l oaded with contrast with 13:16:16 surgical team present. Time Out Concurred by MD, individual staff and STORYBOARD ARTIST in procedure 13:17:19 HR=81 bpm, RJPX=840/119 mmhg, MfY2=931.0 %, Resp=13 B/min 13:17:37 12.5 mcg FENTANYL given in lab by Rayo Trent RN in Left Antecubital via Peripheral IV. Or dered by Camacho Ch. 13:17:56 Case Start 20 mL 1% XYLOCAINE given in lab by Camacho Ch in Right Groin via Subcutaneous. Ordered by Jing 13:17:59 Camacho. 13:18:24 Access site was Right Femoral Artery. 13:18:51 A SHEATH, FR4 TERUMO (10CM) FR 4 was advanced into the Fem Art (right) using the Percutaneo us technique. Recorded Pressure: LV, HR=72, Condition=Condition 1 13:19:21 (Left Ventricle) LV 198/-3/10 A JR 4.0 INFINITI CATHETER FR 4 was advanced over a wire. OMNIPAQUE, 350 MG, 150ML 150ML was us ed for 13:19:22 injections. 13:19:41 The LV was manually injected with ~CCS~ cc's and visualized. contrast used. Recorded Pressure: LV, Ao, HR=75, Condition=Condition 1 13:19:50 (Left Ventricle) LV 175/1/8, (Aorta) Ao 165/86/122 13:20:39 2 inches NITRO OINTMENT given in lab by Rayo Trent RN via Topical to left upper chest. Or dered by Camacho Ch. 13:21:16 The RCA was injected and visualized at various angles. OMNIPAQUE, 350 MG, 150ML 150ML used . 13:21:42 Catheter was removed A JL 4.0 INFINITI CATHETER FR 4 was advanced over a wire. OMNIPAQUE, 350 MG, 150ML 150ML was us ed for 13:21:47 injections. 13:21:54 HR=76 bpm, PKOZ=460/118 mmhg, IxX6=123.0 %, Resp=10 B/min 13:22:38 1 mg VERSED given in lab by Rayo Trent RN in Left Antecubital via Peripheral IV. Ordered by Camacho Ch. 13:22:44 The LCA was injected and visualized at various angles. OMNIPAQUE, 350 MG, 150ML 150ML used . 13:25:45 Catheter was removed A SHEATH, FR6.5 PRELUDE 11CM FR 6.5 was exchanged in the Fem Art (right). This was necessary in order to 13:27:05 accomodate a larger catheter. 13:27:44 HR=79 bpm, BJIV=358/108 mmhg, EvC8=261.0 %, Resp=15 B/min 13:28:00 8000 units HEPARIN given in lab by Rayo Trent RN in Left Antecubital via Peripheral IV. O rdered by Camacho Ch. A XB 3.5 GUIDE CATHETER FR 6 was advanced over a wire. OMNIPAQUE, 350 MG, 150ML 150ML was used for 13:29:49 injections. 13:31:32 Catheter was removed 13:32:24 Pressure channel 1 zeroed. 13:32:43 HR=74 bpm, AZCV=604/103 mmhg, XeN3=925.0 %, Resp=18 B/min 13:34:38 A PRIME WIRE, VERRATA 185CM 185CM was inserted via Fem Art (right). 13:35:20 Activated Clotting Time Drawn 13:36:55 HR=74 bpm, XNFA=585/105 mmhg, HqG7=339.0 %, Resp=10 B/min 13:40:25 1 mg VERSED given in lab by Rayo Trent RN in Left Antecubital via Peripheral IV. Ordered by Camacho Ch. 13:40:40 ACT (Normal Range 90-180) = 263 13:41:52 HR=74 bpm, OCMR=016/118 mmhg, IiO3=960.0 %, Resp=10 B/min 142.587 mcg/kg/min ADENOSINE DRIP given in lab by Rayo Trent RN in Left Antecubital via Perip heral IV. Pump/Drip 13:43:35 Flow = 854 ml/hr using NaCl .9 with a concentration of 90 mg in 80 ml. Ordered by William Ch. 13:43:47 Flow Wire was was placed in the LAD Prox. The FFR measures 0.83 percent. 142.587 mcg/kg/min ADENOSINE DRIP given in lab by Rayo Trent RN in Left Antecubital via Perip heral IV. Pump/Drip 13:46:45 Flow = 854 ml/hr using NaCl .9 with a concentration of 90 mg in 80 ml. Ordered by Camacho Ch. Reason: As per physicians verbal order. Discontinued 13:47:27 Flow Wire was was placed in the LAD Dist. The FFR measures 0.72 percent. 13:47:38 HR=87 bpm, NRRA=102/104 mmhg, HnB3=156.0 %, Resp=20 B/min An STENT, 3.0 12 INTEGRITY 3.0 12 Bare Metal Stent was inserted through a XB 3.5 GUIDE CATHETER FR 6 over a 13:49:47 PRIME WIRE, VERRATA 185CM 185CM. A STENT, 3.0 12 INTEGRITY 3.0 12 was deployed using a 30 HARDIK INDEFLATOR at 14 atmospheres for 3 0 seconds in 13:51:31 the LAD Dist. 58 mL AGGRASTAT BOLUS given in lab by Rayo Trent RN in Left Antecubital via Peripheral IV. Or dered by Jing, 13:51:41 Camacho. 13:52:14 Delivery device removed 13:52:47 HR=78 bpm, SVNV=457/94 mmhg, AlZ8=063.0 %, Resp=13 B/min 13:54:14 Wire removed 13:54:23 Catheter was removed 13:55:32 Case End 13:57:55 HR=71 bpm, IIAA=136/113 mmhg, SpO2=99.0 %, Resp=14 B/min 13:58:27 In the Fem Art (right) the SHEATH, FR6.5 PRELUDE 11CM FR 6.[address] by Eileen Tee, RT(R). 13:58:30 Sterile dressing applied to site 14:00:38 600 mg PLAVIX given in lab by Rayo Trent RN via Oral. Ordered by Camacho Ch. 0.15 mcg/kg/min AGGRASTAT DRIP given in lab by Rayo Trent RN in Left Antecubital via Peripher al IV. Pump/Drip 14:00:43 Flow = 20.21 ml/hr using NaCl .9 with a concentration of 12.5 mg in 250 ml. Ordered by Camacho Ch. 14:02:00 HR=70 bpm, ZABD=297/93 mmhg, SpO2=99.0 %, Resp=8 B/min Assessment: Final Case, HR=70 BPM, Rhythm=nsr, MUGL=711/93 mmhg, Chest Pain=3, Edema=None, [place] r=Normal, Skin = Warm Right Pulses: Bakari Ped=2, Femoral=1 14:05:13 Left Pulses: Bakari Ped=2, Femoral=1 Neurological: State=Alert, Ox3, CABRAL Respiration: Resp=13 B/min, PxR9=451 %, O2=2 lpm 14:08:48 Patient moved to stretcher 14:08:59 Patient transported to DOCU. End Study - Contrast Media Used In Study Contrast Total Opened (mL) Total Used (mL) Total Wasted (mL) Omnipaque 120 120 0 End Study - Maximum Contrast Load Max Contrast Load (mL) 801.9 End Study - Radiation Exposure Fluoro Time (minutes) 4.1 End Study - Patient Disposition Complications Transferred To Interventional Outcome No Telemetry Bed successful
[2017-03-10] MEDS ORDERED: NITROGLYCERIN-D5W 50 MG/250 ML 250 ML ONE (14:27)
[2017-03-10] MEDS ORDERED: MIDAZOLAM HCL 5 MG/ML VIAL (1 ML) IV PUSH PRN (17:00)
[2017-03-10] MEDS: SODIUM CHLORIDE 0.9% FLUSH 10 ML FLUSH SCH (21:00)
[2017-03-10] MEDS ORDERED: cloNIDine HCL 0.2 MG TAB PO ONE (21:15)
[2017-03-10] MEDS ORDERED: hydrALAZINE HCL 100 MG TAB PO ONE (21:15)
[2017-03-10] MEDS ORDERED: DOXAZOSIN MESYLATE 4 MG TAB PO ONE (21:30)
[2017-03-10] MEDS ORDERED: amLODIPine BESYLATE 5 MG TAB PO SCH (21:30)
[2017-03-10] MEDS ORDERED: ATORVASTATIN 40 MG TAB PO ONE (21:30)
[2017-03-10] MEDS ORDERED: CARVEDILOL 12.5 MG TAB PO ONE (21:30)
[2017-03-10] MEDS ORDERED: ACETAMINOPHEN 325 MG TAB PO PRN (21:30)
[2017-03-10] MEDS ORDERED: VENLAFAXINE HCL XR 75 MG CAP PO SCH (21:45)
[2017-03-10] MEDS: VALSARTAN 160 MG TAB PO SCH (21:55)
[2017-03-10] MEDS: METOPROLOL TARTRATE 100 MG TAB PO SCH (21:56)
[2017-03-10] MEDS ORDERED: PT:LETROZOLE 2.5 MG PO SCH (22:00)
[2017-03-11] VITALS (18 sets, daily range): BP systolic 101–131; BP diastolic 57–73; PULSE 64–86; RESP 16–20; TEMP 97.9–98.4; O2SAT 96–98
[2017-03-11 07:05] LABS: AUTOMATED NEUTROPHIL # 5.4 TH/MM3 (1.8-7.7); BASOPHIL % 0.3 % (0.0-2.0); EOSINOPHIL # 0.2 TH/MM3 (0-0.4); EOSINOPHIL % 2.7 % (0.0-4.0); HEMATOCRIT 32.6 % (35.0-46.0); HEMO FLAGS DIFF FINAL; LYMPH % 18.3 % (9.0-44.0); LYMPHOCYTE # 1.3 TH/MM3 (1.0-4.8); MEAN CELL VOLUME 79.1 FL (80.0-100.0); MEAN CORPUSCULAR HEMOGLOBIN 25.3 PG (27.0-34.0); MONO % 4.9 % (0.0-8.0); NEUT % 73.8 % (16.0-70.0); PLATELET COUNT 297 TH/MM3 (150-450); RED BLOOD COUNT 4.12 MIL/MM3 (4.00-5.30); RED CELL DISTRIBUTION WIDTH 16.2 % (11.6-17.2); WHITE BLOOD COUNT 7.3 TH/MM3 (4.0-11.0)
[2017-03-11 07:37] LABS: BICARBONATE 26.7 MEQ/L (21.0-32.0); HDL CHOLESTEROL 41.3 MG/DL (40.0-60.0); POTASSIUM 3.6 MEQ/L (3.5-5.1)
[2017-03-11] MEDS: SODIUM CHLORIDE 0.9% FLUSH 10 ML FLUSH SCH (08:57)
[2017-03-11] MEDS: METOPROLOL TARTRATE 100 MG TAB PO SCH (08:59)
[2017-03-11] MEDS ORDERED: CARVEDILOL 12.5 MG TAB PO SCH (09:00)
[2017-03-11] MEDS ORDERED: CLOPIDOGREL 75 MG TAB PO SCH ×3 (09:00→21:00)
[2017-03-11] MEDS ORDERED: cloNIDine HCL 0.2 MG TAB PO SCH (09:00)
[2017-03-11] MEDS ORDERED: ASPIRIN 81 MG CHEW TAB PO SCH (09:00)
[2017-03-11] MEDS ORDERED: TRIAMTERENE/HCTZ 37.5 MG/25 MG TAB PO SCH (09:00)
[2017-03-11] MEDS: VALSARTAN 160 MG TAB PO SCH (09:49)
--- NOTE | 2017-03-11 11:34 | EKG ---
Date Performed: 03/11/2017 Time Performed: 05:54:28 PTAGE: 66 years EKG: Sinus rhythm Normal ECG Compared to prior tracing no significant change PREVIOUS TRACING : 03/10/2017 14.22 DOCTOR: Edwardo Kumari Interpretating Date/Time 03/11/2017 11:33:17
--- NOTE | 2017-03-11 11:34 | EKG ---
Date Performed: 03/10/2017 Time Performed: 11:17:30 PTAGE: 66 years EKG: Sinus rhythm . Normal ECG Compared to prior tracing no significant change PREVIOUS TRACING : 01/26/2017 05.14 DOCTOR: Edwardo Kumari Interpretating Date/Time 03/11/2017 11:32:46
--- NOTE | 2017-03-11 11:34 | EKG ---
Date Performed: 03/10/2017 Time Performed: 14:22:50 PTAGE: 66 years EKG: Sinus rhythm . Normal ECG Compared to prior tracing no significant change PREVIOUS TRACING : 03/10/2017 11.17 DOCTOR: Edwardo Kumari Interpretating Date/Time 03/11/2017 11:33:07
[2017-03-11] MEDS ORDERED: hydrALAZINE HCL 100 MG TAB PO SCH (21:00)
[2017-03-11] MEDS ORDERED: ATORVASTATIN 40 MG TAB PO SCH (21:00)
[2017-03-11] MEDS ORDERED: DOXAZOSIN MESYLATE 4 MG TAB PO SCH (21:00)
--- NOTE | 2017-03-12 15:58 | MA ---
cc: CCList DATE 10/08/16 PROCEDURES PERFORMED Left heart catheterization, left ventriculography, coronary angiography. FFR of the proximal LAD and FFR of the yab-je-uawcqo LAD and direct PCI bare metal stent of the abo-dp-kvwopw LAD. INDICATION New onset cardiac symptoms of severe chest pain described as pressing, radiating down the left arm at rest, unstable angina. [place] Cardiovascular Society Class IV angina, coronary artery disease, hyperlipidemia, hypertension, multiple cardiac risk factors. PROCEDURE IN DETAIL The patient was brought to the cardiac catheterization laboratory, prepped and draped in the usual sterile fashion. 10 cc of 1% lidocaine was used to locally anesthetize the right common femoral artery, 4-Marshallese sheath placed in the right common femoral artery, 4-Marshallese JR-4, JL-4 catheters used to perform left and right coronary angiography, left ventriculography. FINDINGS The LV pressures 185/5-8. Ejection fraction 65%. Right coronary artery is a small codominant vessel with stent and the mid proximal segment is widely patent. Abrupt step down beginning at the mid segment from approximately a 225 to 25 mm vessel to a 1.5 to 2 mm vessel. It is difficult to tell whether this is normal vessel tapering versus diffuse atherosclerosis and/or combination of both of course. No obvious focal stenosis, however. Left main coronary artery has no significant disease angiographically. Left circumflex vessel was tortuous in the proximal segment. It has a 160 degrees bend off the left main followed by a 150 degrees bend in the opposite direction in the proximal segment. This supplies a medium sized marginal vessel which at the ostium has a 60-70% stenosis. The LAD is a large transapical vessel. It has a 60% stenosis of the bifurcation with a moderate size diagonal vessel which itself has a 50% ostial stenosis. The wst-ol-micloj LAD has a long 70% stenosis. The LAD is a transapical vessel supplying the distal 3/3 of the inferoapical wall. DISCUSSION The patient with new onset angina. Angiographically indeterminate physiologically significant stenoses in the LAD and the marginal vessel as detailed above. Therefore, I do think FFR was medically necessary. Therefore, a 4-Marshallese sheath exchanged for the 6-Marshallese sheath. The patient was given 70 units per kilo of heparin. ACT was 263. 6-Marshallese XB 3.5 guide and 0.__ volcano pressure wire was placed into the left main, ostial proximal LAD. The introducer was removed. The guide catheter was thoroughly flushed with 20 cc of normal saline. Pressure waveforms were normalized. The pressure wire was advanced to the mid-LAD but not beyond the mid to distal lesion. FFR was then performed with 140 mcg per kilogram per minute of adenosine for 3 minutes, FFR was 0.83. I then turned the adenosine off and approximately 30 seconds later after adenosine infusion I advanced the pressure wire beyond the ilp-vj-mdwbgc LAD lesion even with the adenosine being off for 30 seconds the FFR was 0.72. Therefore, I did think it was medically necessary to proceed with PCI of the kcl-sx-uvpjka LAD. I placed a 3-0 12 integrity stent, one inflation 40 atmospheres, 25 seconds. This did reproduce the patient's symptoms of chest pain that she had prior to procedure at home. Stenosis went from 70% to 0% with MARE-III flow. CONCLUSION 1. Unstable angina. [place] Cardiovascular Society class IV angina, culprit 70% stenosis in the xff-dn-gzfymf LAD with FFR of 0.72. 2. Otherwise, moderate to severe disease in the proximal LAD and the ostial proximal. MD VAMSI Lanier/SHARIFA /1:59 PM /3:36 PM
== END 2017-03-11 18:50 | disposition home or self-care (01) ==
LOC: HDOC 10:12 → HDIC 10:13 → HDOC 14:07 → HCIS 14:08
PROVIDERS: ADMIT Internal Medicine Interventional Cardiology; ATTEND Internal Medicine Interventional Cardiology
DX: I25.110 Atherosclerotic heart disease of native coronary artery with unstable angina pectoris (principal); I10 Essential (primary) hypertension; E78.00 Pure hypercholesterolemia, unspecified; E07.9 Disorder of thyroid, unspecified; Z85.3 Personal history of malignant neoplasm of breast; Z79.82 Long term (current) use of aspirin; Z79.899 Other long term (current) drug therapy
CPT/HCPCS: 80048; 80061; 82550; 85002; 85025; 85610; 92928; 93005; 93458; 93571; 96374; 96375; C1769; C1876; C1887; C1893; G0378; J1644; J2250; J3010; J3246; J0153; Q9967

== ENCOUNTER 2017-03-19 07:19 | Day surgery (SDC) | payer BC ==
[~2017-03-19] VITALS: Ht 167.6 cm; Wt 113.5 kg
[~2017-03-19 07:19] MED LIST changes: +CORE25TA PO; +DOXA1TAB34 PO; -HYDR25TA5 PO; +LIPI40TA PO
[2017-03-19 07:50] VITALS: BP 128/84; PULSE 70; RESP 19; O2SAT 98
[2017-03-19] MEDS ORDERED: ASPIRIN 81 MG CHEW TAB PO SCH ×2 (08:00→21:00)
[2017-03-19 08:19] LABS: BASOPHIL % 0.4 % (0.0-2.0); EOSINOPHIL # 0.2 TH/MM3 (0-0.4); EOSINOPHIL % 2.6 % (0.0-4.0); HEMATOCRIT 35.5 % (35.0-46.0); HEMO FLAGS DIFF FINAL; LYMPHOCYTE # 2.7 TH/MM3 (1.0-4.8); MEAN CELL VOLUME 79.1 FL (80.0-100.0); MEAN CORPUSCULAR HEMOGLOBIN 25.8 PG (27.0-34.0); MEAN CORPUSCULAR HGB CONC 32.7 % (32.0-36.0); MONO % 6.1 % (0.0-8.0); NEUT % 62.9 % (16.0-70.0); PLATELET COUNT 314 TH/MM3 (150-450); RED BLOOD COUNT 4.48 MIL/MM3 (4.00-5.30); RED CELL DISTRIBUTION WIDTH 16.2 % (11.6-17.2); WHITE BLOOD COUNT 9.6 TH/MM3 (4.0-11.0)
[2017-03-19] MEDS ORDERED: HEPARIN-NS/PF INJ 500 ML ONE ×3 (08:27→09:33)
[2017-03-19] MEDS ORDERED: HEPARIN SODIUM - IV 10,000 UNITS/10 ML VIAL ONE (08:29)
[2017-03-19 08:31] LABS: APTT (PATIENT) 25.1 SEC (24.3-30.1)
[2017-03-19 08:40] LABS: BICARBONATE 28.4 MEQ/L (21.0-32.0)
[2017-03-19] MEDS ORDERED: IOHEXOL 350 MG/ML 100 ML BTL (for Cath Lab) OTHER ONE (08:47)
[2017-03-19] MEDS ORDERED: MIDAZOLAM HCL 2 MG/2 ML VIAL ONE (08:47)
[2017-03-19] MEDS ORDERED: NITROGLYCERIN-D5W 50 MG/250 ML 250 ML ONE (08:50)
[2017-03-19] MEDS ORDERED: ADENOSINE STRESS TEST INJ 90 MG/30 ML VIAL ONE (08:56)
[2017-03-19] MEDS ORDERED: CLOPIDOGREL 300 MG TAB ONE (09:44)
[2017-03-19] MEDS ORDERED: TIROFIBAN INFUSION INJ 250 ML IV ONE (09:44)
[2017-03-19] MEDS: TIROFIBAN INFUSION INJ 250 ML IV SCH ×2 (09:46→19:08)
[2017-03-19] MEDS ORDERED: CLOPIDOGREL 300 MG TAB PO ONE (10:00)
[2017-03-19] MEDS ORDERED: SODIUM CHLORIDE 0.9% FLUSH 10 ML FLUSH PRN (10:00)
[2017-03-19] MEDS ORDERED: MISC INFORMATION XX ONE (10:00)
--- NOTE | 2017-03-19 10:06 | CATHPROC ---
[facility] HIS Report Study Information Study Number Admission Scheduled Start Study Start [id number] Mar 19 2017 7:19AM 03/19/2017 Mar 19 2017 8:18AM [place] [facility] Cardiac Catheterization Admit Source Facility Department Other [facility] - Combat [employer] Physician and Clinical Staff Initial MD Ch, Camacho Workers Compensation Legal Secretary Lorraine Merlos,AURELIANO Recorder Troy Ferrell,RT(R) Scrub Cathy Yap,LOLLYPOP MACHINE OPERATOR TECH2 Scrub Alicia Barroso,RT(R) Procedures Performed Procedure Location (Site) Vessel Name Stent OM1 Prox CIRC Wire insertion Fem Art (right) Femoral Art Equipment Time Fitness Centre Manager Description Size Mfg Part Number Used/Scraped [id number] 09:17 COSTELLO [employer] WIRE, ASAHI PROWATER 180CM 180CM Used *[id number] 09:28 [employer]STELLO [employer] WIRE, ASAHI PROWATER 180CM 180CM Used *[id number] TRANSDUCER, TRUWAVE [id number] 08:44 MEJIA NAVARRETE * Used W/STOCKCOCK *[id number] 09:06 BOSTON SCIENTIFIC BALLOON, 2.0 8MM EMERGE MR 2.0 8MM Used *[id number] 45099-86 09:11 BOSTON SCIENT[employer] WIRE, CHOICE 182CM 182CM Used [id number] *[id number] 08:44 MEDLINE INDUSTRIES PACK, CCL CUSTOM * Used *[id number] 08:44 PowerDMS PACER PEN, SKIN DUAL W/ RULER * Used *[id number] 09:35 MEDTRONIC STENT, 2.5 8 INTEGRITY 2.5 8 Used *[id number] 09:43 Brainly MEDICAL 30 HARDIK INDEFLATOR Used *[id number] 08:54 Brainly MEDICAL SHEATH, FR6.5 PRELUDE 11CM FR 6.5 038ACT Used *[id number] 08:44 Brainly MEDICAL WIRE, 3MMJ .035 180CM 180CM Used *[id number] 08:44 NAMIC MANIFOLD, 4 PORT * Used *[id number] 08:44 NYCOMED OMNIPAQUE, 350 MG, 150ML 150ML [id number] Used [id number] 08:44 MAGUIRE MEDICAL BLANKET,WARM AIR CCL * Used *[id number] 08:44 TERUMO MEDICAL SHEATH, FR4 TERUMO (10CM) FR 4 Used *[id number] 09:02 VOLCANO PRIME WIRE, VERRATA 185CM 185CM 38010 *[id number] Used [id number] Scrap: Physician 09:13 MEDTRONIC STENT, 3.0 9 INTEGRITY 3.0 9 *[id number] choice [id number] Scrap: Physician 09:32 MEDTRONIC STENT, 3.0 9 INTEGRITY 3.0 9 *[id number] choice Equipment Model, Serial, Lot Number and Expiration Data Description Model Number Serial Number Lot Number Expiration Date STENT, 2.5 8 INTEGRITY [id number] 10-21-2018 STENT, 3.0 9 INTEGRITY [id number] 10-28-2018 History: Risk Factors Family History of Hypertension Dyslipidemia Previous IA Previous Heart Failure Premature CAD Yes Yes Yes No No Prior Valve Prior PCI Prior PCIDate Prior CABG Surgery No Yes 03/10/2017 No Cerebrovascular Peripheral Artery Chronic Lung On Dialysis Diabetes Disease Disease Disease No No No No No History: Other Current Smoker No Labs Hgb (g/dl) Hct (%) RBC (MIL/MM3) WBC (l/cumm) Platelets (thousands) 11.60-17.00 35.00-51.00 4.00-5.90 4.00-11.00 150.00-450.00 11.6 35.5 4.4 9.6 314 Glucose (mg/dl) BUN (mg/dl) Creatinine (mg/dl) BUN:Creatinine (1:x) 74.00-106.00 7.00-18.00 0.50-1.30 10.00-20.00 213 17 0.9 18.9 Na (meq/l) K (meq/l) Cl (meq/l) CO2 (mmol/L) 136.00-145.00 3.50-5.10 98.00-107.00 21.00-32.00 138 4 101 28.4 PT (sec) PTT (sec) INR (PTT:PT) 9.80-11.60 24.30-30.10 0.90-1.10 11 25.1 1 Medication Medication Total Dose (Bolus/Oral) Medication Total Dosage/Unit 1% XYLOCAINE 20 mL AGGRASTAT BOLUS 57 mL FENTANYL 75 mcg HEPARIN 9500 units PLAVIX 600 mg VERSED 2 mg Medications (Bolus/Oral) Medication Time Given Dosage/Unit Administered By Reason VERSED 03/19/2017 8:47:23 AM 1 mg Lorraine Merlos 1 mg VERSED given in lab by Lorraine Merlos RN in Left Antecubital via Peripheral IV. Ordered by Camacho Roy. FENTANYL 03/19/2017 8:48:06 AM 25 mcg Lorraine Merlos 25 mcg FENTANYL given in lab by Lorraine Merlos RN in Left Antecubital via Peripheral IV. Ordered by Camacho Ch. 1% XYLOCAINE 03/19/2017 8:49:23 AM 20 mL Camacho Ch 20 mL 1% XYLOCAINE given in lab by Camacho Ch in Right Groin via Subcutaneous. FENTANYL 03/19/2017 8:50:53 AM 25 mcg Lorraine Merlos 25 mcg FENTANYL given in lab by Lorraine Merlos RN in Left Antecubital via Peripheral IV. Ordered by Camacho Ch. HEPARIN 03/19/2017 8:51:30 AM 8000 units Lorraine Merlos 8000 units HEPARIN given in lab by Lorraine Merlos RN in Left Antecubital via Peripheral IV. Ordered by Camacho Ch. VERSED 03/19/2017 8:52:16 AM 1 mg Lorraine Merlos 1 mg VERSED given in lab by Lorraine Merlos RN via Peripheral IV. Ordered by Camacho Ch. HEPARIN 03/19/2017 9:28:32 AM 1500 units Lorraine Merlos 1500 units HEPARIN given in lab by Lorarine Merlos RN in Left Antecubital via Peripheral IV. Ordered by Camacho Ch. AGGRASTAT BOLUS 03/19/2017 9:46:00 AM 57 mL Lorraine Merlos 57 mL AGGRASTAT BOLUS given in lab by Lorraine Merlos RN in Left Antecubital via Peripheral IV. Orde red by Camacoh Ch. FENTANYL 03/19/2017 9:47:45 AM 25 mcg Lorraine Merlos 25 mcg FENTANYL given in lab by Lorraine Merlos RN in Left Antecubital via Peripheral IV. Ordered by Camahco Ch. PLAVIX 03/19/2017 9:52:20 AM 600 mg Lorraine Merlos 600 mg PLAVIX given in lab by Lorraine Merlos RN in Left Antecubital via Oral. Ordered by Camacho Ch. Medication (Drip) Medication Time Given Dosage/Unit Concentration/Unit Diluent (ml) Solution AGGRASTAT DRIP 03/19/2017 9:49:45 AM 0.152 mcg/kg/min 12.5 mg 250 NaCl .9 0.152 mcg/kg/min AGGRASTAT DRIP given in lab by Lorraine Merlos RN in Left Antecubital via Periphera l IV. Pump/Drip Flow = 21 ml/hr using NaCl .9 with a concentration of 12.5 mg in 250 ml. Ordered by Camacho Ch. IV Solutions 03/19/2017 8:25:41 AM 0 mL (IV) 500 NaCl .9 Patient arrived on IV Solutions given by Camacho Ch in Left Antecubital via Peripheral IV. Pump /Drip Flow = 20 ml/hr using NaCl .9. Initial Case Assessment Cardiovascular HR Rhythm NIBP Chest Pain 75 sr 173/92 2 Edema Present Skin color Skin None Normal Warm Dry Circulatory - Right Pulses Dorsalis Pedis Femoral 2 2 Scale (0,1,2,3,4,d) Circulatory - Left Pulses Dorsalis Pedis Femoral 2 2 Scale (0,1,2,3,4,d) Neurological State Oriented to time-place- Alert Moves all extremities person Respiration - General Respiration Rate SpO2 (%) O2 (lpm) (B/min) 18 97 0 Final Case Assessment Cardiovascular HR Rhythm NIBP Chest Pain 70 sr 168/108 0 Edema Present Skin color Skin None Normal Warm Dry Circulatory - Right Pulses Dorsalis Pedis Femoral 2 2 Scale (0,1,2,3,4,d) Circulatory - Left Pulses Dorsalis Pedis Femoral 2 2 Scale (0,1,2,3,4,d) Neurological State Oriented to time-place- Alert Moves all extremities person Respiration - General Respiration Rate SpO2 (%) O2 (lpm) (B/min) 18 98 0 Chronological Log Time Study Chronological Log 8:18:15 Patient arrived via Bed. 8:18:16 Patient Name, D.O.B, / Armband Verified By R.N. 8:18:17 Consent signed by the physician and the patient and verified by the Combat Systems [employer] staff. 8:19:21 Pre-op and post- op instructions given; patient acknowledges understanding of instructions. 8:19:23 Verbal Stimulation=2 Physical Stimulation=2 Airway=2 Respiration=2 TOTAL=8. (0=absent, 1=li mited, 2=present) 8:19:31 Presedation assessment performed by Combat Systems [employer] RN. 8:24:38 Skin Breakdown-none present per patient. 8:25:32 A # 20 IV was noted in the Antecubital (left). Grade = 0 Patient arrived on IV Solutions given by Camacho Ch in Left Antecubital via Peripheral IV . Pump/Drip Flow = 20 8:25:41 ml/hr using NaCl .9. Vitals capture started with the following parameters, Patient=Adult, Interval=5 min, Initial Pr xwmgzc=417 mmHg, 8:25:53 Deflation Rate=5 mmHg, Cuff placed on Left Leg 8:26:13 History and physical on the chart or being dictated. Assessment: Initial Case, HR=75 BPM, Rhythm=sr, SGXM=251/92 mmhg, Chest Pain=2, Edema=None, Col or=Normal, Skin = Warm, Dry Right Pulses: Bakari Ped=2, Femoral=2 8:26:18 Left Pulses: Bakari Ped=2, Femoral=2 Neurological: State=Alert, Ox3, CABRAL Respiration: Resp=18 B/min, SpO2=97 %, O2=0 lpm 8:27:22 Reference ECG taken 8:27:28 HR=71 bpm, XZHW=272/92 mmhg, SpO2=97.0 %, Resp=13 B/min, Juárez=2 8:27:37 Bilateral groins prepped with 2% chlorhexidine, and with a 3 min. waiting time. 8:32:27 HR=73 bpm, XBMM=036/93 mmhg, SpO2=98.0 %, Resp=6 B/min, Juárez=2 8:35:56 Pressure channel 1 zeroed. 8:36:43 HR=70 bpm, FWEE=527/99 mmhg, SpO2=97.0 %, Resp=12 B/min, Juárez=2 8:41:42 HR=70 bpm, IFYF=134/94 mmhg, SpO2=96.0 %, Resp=14 B/min, Juárez=2 8:45:37 MD arrived. 8:47:23 1 mg VERSED given in lab by Lorraine Merlos, RN in Left Antecubital via Peripheral IV. Order ed by Camacho Ch. Time Out. Correct patient, correct procedure,correct physician, ,power injector not loaded with contrast with surgical 8:47:38 team present. Time Out Concurred by MD, individual staff and TECHNOLOGY AUDITOR in procedure. Not loaded at th is time. 8:47:42 HR=69 bpm, VLMV=162/137 mmhg, SpO2=99.0 %, Resp=2 B/min, Juárez=2 25 mcg FENTANYL given in lab by Lorraine Merlos, RN in Left Antecubital via Peripheral IV. Order ed by Jing, 8:48:06 Camacho. 8:48:41 Presedation re-assessment performed by Combat Systems Operator [employer] RN. 8:48:42 Case Start 8:48:45 Verbal Stimulation=2 Physical Stimulation=2 Airway=2 Respiration=2 TOTAL=8. (0=absent, 1=owens ited, 2=present) 8:49:23 20 mL 1% XYLOCAINE given in lab by Camacho Ch in Right Groin via Subcutaneous. 25 mcg FENTANYL given in lab by Lorraine Merlos, RN in Left Antecubital via Peripheral IV. Order ed by Jing, 8:50:53 Camacho. 8:51:28 Access site was Right Femoral Artery. 8000 units HEPARIN given in lab by Lorraine Merlos, AURELIANO in Left Antecubital via Peripheral IV. Or dered by Jing, 8:51:30 Camacho. 8:51:48 HR=70 bpm, VOBQ=155/91 mmhg, SpO2=98.0 %, Resp=11 B/min, Juárez=2 8:52:13 A SHEATH, FR6.5 PRELUDE 11CM FR 6.5 was advanced into the Fem Art (right) using the Percutan eous technique. 8:52:16 1 mg VERSED given in lab by Lorraine Merlos, RN via Peripheral IV. Ordered by Aba Ch. 8:56:58 Pressure channel 1 zeroed. 8:57:30 HR=70 bpm, BQHP=264/93 mmhg, SpO2=96.0 %, Resp=9 B/min, Juárez=2 A XB 4.0 GUIDE CATHETER FR 6 was advanced over a wire. OMNIPAQUE, 350 MG, 150ML 150ML was used f or 8:58:50 injections. 9:01:37 A PRIME WIRE, VERRATA 185CM 185CM was inserted via Fem Art (right). 9:01:42 HR=71 bpm, ADWU=883/105 mmhg, SpO2=96.0 %, Resp=10 B/min, Juárez=2 9:06:14 Activated Clotting Time Drawn 9:07:28 HR=69 bpm, UMZG=315/107 mmhg, QuZ6=115.0 %, Resp=11 B/min, Juárez=2 9:11:46 HR=69 bpm, JMOP=192/87 mmhg, SpO2=96.0 %, Resp=12 B/min, Juárez=2 9:12:24 A WIRE, CHOICE 182CM 182CM was inserted via Fem Art (right). 9:13:37 ACT (Normal Range 90-180) = 256 9:14:14 Pressure wire removed. An STENT, 3.0 9 INTEGRITY 3.0 9 Bare Metal Stent was inserted through a XB 4.0 GUIDE CATHETER FR 6 over a 9:15:55 WIRE, CHOICE 182CM 182CM. 9:16:20 Stent not deployed. Stent removed and intact. 9:16:43 HR=67 bpm, NUBW=033/93 mmhg, SpO2=98.0 %, Resp=13 B/min, Juárez=2 9:19:18 A WIRE, ASAHI PROWATER 180CM 180CM was inserted via Fem Art (right). 9:20:43 Interventional wire has crossed the lesion 9:22:29 HR=69 bpm, GKPP=899/96 mmhg, SpO2=98.0 %, Resp=13 B/min, Juárez=2 An STENT, 3.0 9 INTEGRITY 3.0 9 Bare Metal Stent was inserted through a XB 4.0 GUIDE CATHETER F R 6 over a 9:22:35 WIRE, ASAHI PROWATER 180CM 180CM. 9:26:18 Stent not deployed. Stent removed and intact. 9:27:26 HR=70 bpm, KVXT=727/90 mmhg, SpO2=97.0 %, Resp=12 B/min, Juárez=2 9:28:16 A WIRE, ASAHI PROWATER 180CM 180CM was inserted via Fem Art (right). 1500 units HEPARIN given in lab by Lorraine Merlos RN in Left Antecubital via Peripheral IV. O rdered by Jing, 9:28:32 Camacho. 9:29:40 Stent not deployed. Stent removed and intact. 9:31:45 HR=69 bpm, IEQW=612/95 mmhg, SpO2=96.0 %, Resp=7 B/min, Juárez=2 An STENT, 3.0 9 INTEGRITY 3.0 9 Bare Metal Stent was inserted through a XB 4.0 GUIDE CATHETER F R 6 over a 9:33:35 WIRE, ASAHI PROWATER 180CM 180CM. 9:35:48 Stent not deployed. Stent removed and intact. 9:36:48 HR=68 bpm, EBYA=657/104 mmhg, SpO2=96.0 %, Resp=17 B/min, Juárez=2 An STENT, 2.5 8 INTEGRITY 2.5 8 Bare Metal Stent was inserted through a XB 4.0 GUIDE CATHETER F R 6 over a 9:37:36 WIRE, ASAHI PROWATER 180CM 180CM. 9:41:36 HR=71 bpm, VKCO=141/94 mmhg, SpO2=95.0 %, Resp=12 B/min, Juárez=2 A STENT, 2.5 8 INTEGRITY 2.5 8 was deployed using a 30 HARDIK INDEFLATOR at 20 atmospheres for 24 seconds in the 9:42:14 OM1 Prox. 9:43:42 Delivery device removed 9:43:50 Wires removed 57 mL AGGRASTAT BOLUS given in lab by Lorraine Merlos, AURELIANO in Left Antecubital via Peripheral IV . Ordered by 9:46:00 Camacho Ch. Assessment: Final Case, HR=70 BPM, Rhythm=sr, EDAK=694/108 mmhg, Chest Pain=0, Edema=None, [place] r=Normal, Skin = Warm, Dry Right Pulses: Bakari Ped=2, Femoral=2 9:46:35 Left Pulses: Bakari Ped=2, Femoral=2 Neurological: State=Alert, Ox3, CABRAL Respiration: Resp=18 B/min, SpO2=98 %, O2=0 lpm 9:47:06 HR=68 bpm, EEGQ=894/108 mmhg, SpO2=98.0 %, Resp=7 B/min, Juárez=2 25 mcg FENTANYL given in lab by Lorraine Merlos, AURELIANO in Left Antecubital via Peripheral IV. Orde red by Jing, 9:47:45 Camacho. 9:47:47 Catheter(s) removed without difficulty 9:47:50 In the Fem Art (right) the SHEATH, FR6.5 PRELUDE 11CM FR 6.[address] by Camacho Schwab. 9:48:29 Case End 9:48:31 Sterile dressing applied to site 9:48:33 No case complications noted. 9:48:35 Cine recording checked. 0.152 mcg/kg/min AGGRASTAT DRIP given in lab by Lorraine Merlos, RN in Left Antecubital via Per ipheral IV. 9:49:45 Pump/Drip Flow = 21 ml/hr using NaCl .9 with a concentration of 12.5 mg in 250 ml. Ordered by Camacho Myers. 9:51:51 HR=69 bpm, IZUQ=070/91 mmhg, SpO2=97.0 %, Resp=9 B/min, Juárez=2 9:52:20 600 mg PLAVIX given in lab by Lorraine Merlos, RN in Left Antecubital via Oral. Ordered by Camacho Myers. 9:52:35 Activated Clotting Time Drawn 9:56:42 [facility] Vitals capture stopped. 10:00:17 ACT (Normal Range 90-180) = 321 End Study - Contrast Media Used In Study Contrast Total Opened (mL) Total Used (mL) Total Wasted (mL) Omnipaque 105 105 0 End Study - Maximum Contrast Load Max Contrast Load (mL) 638.9 End Study - Radiation Exposure Fluoro Time (minutes) 17.9 End Study - Patient Disposition Complications Transferred To Interventional Outcome No Telemetry Bed successful
--- NOTE | 2017-03-19 14:53 | EKG ---
Date Performed: 03/19/2017 Time Performed: 08:14:10 PTAGE: 66 years EKG: Sinus rhythm . Poor R wave progression - probable normal variant Borderline ECG PREVIOUS TRACING : 03/11/2017 05.54 Since previous tracing, no significant change noted DOCTOR: Raheem Painting Interpretating Date/Time 03/19/2017 14:52:32
[2017-03-19 15:15] VITALS: BP 135/85; PULSE 72; RESP 16; TEMP 98.9; O2SAT 96
[2017-03-19 19:00] VITALS: PULSE 87
[2017-03-19 19:30] VITALS: BP 134/84; PULSE 87; RESP 15; TEMP 98.8; O2SAT 94
[2017-03-19] MEDS ORDERED: DOXAZOSIN MESYLATE 4 MG TAB PO SCH (21:00)
[2017-03-19] MEDS ORDERED: VENLAFAXINE HCL XR 75 MG CAP PO SCH (21:00)
[2017-03-19] MEDS ORDERED: ATORVASTATIN 40 MG TAB PO SCH (21:00)
[2017-03-19] MEDS ORDERED: hydrALAZINE HCL 100 MG TAB PO SCH (21:00)
[2017-03-19] MEDS ORDERED: LETROZOLE 2.5 MG PO SCH (21:00)
[2017-03-19] MEDS: VALSARTAN 160 MG TAB PO SCH (21:52)
[2017-03-19] MEDS: METOPROLOL TARTRATE 100 MG TAB PO SCH (21:52)
[2017-03-19] MEDS: cloNIDine HCL 0.2 MG TAB PO SCH (21:53)
[2017-03-19] MEDS: CARVEDILOL 12.5 MG TAB PO SCH (21:53)
[2017-03-19] MEDS: SODIUM CHLORIDE 0.9% FLUSH 10 ML FLUSH SCH (21:54)
--- NOTE | 2017-03-19 22:55 | MR ---
cc: GIO MUÑOZ M.D. DATE 03/19/17 Direct PCI bare metal stent of the proximal first obtuse marginal vessel. INDICATIONS 1. Unstable angina. 2. [place] Cardiovascular Society Class IV angina. 3. Coronary artery disease. PROCEDURE The patient was brought to the Cardiac Catheterization Laboratory, prepped and draped in the usual sterile fashion. 10 cc of 1% lidocaine was used to locally anesthetize the right common femoral artery. 6-Cuban sheath placed in the right common femoral artery. Seven units per kilo of heparin was given. Initial ACT 273, additional 1500 units of heparin was given. A second ACT was 253 and final ACT was pending at the time of dictation. My initial intent was to do an FFR of the marginal vessel stenosis, however the circumflex vessel took a near 180 degrees bend off the left main in the opposite direction of the LAD followed by a secondary bend again near 180 degrees into the OM. I was not able to advance the FFR wire despite multiple attempts and also using a 206 Euphora noncompliant balloon as support. We also were using a 6-Cuban XB 4.0 guide. I then was able to successfully deliver a 0.014 choice PT guidewire into the OM, past the lesion. I was not however able to deliver a 309 Integrity stent beyond the first bend off the left main due to severe vessel tortuosity. Therefore, I used a 0.014 Prowater guidewire as a barb wire, advanced that into the distal OM. I tried advancing a 309 Integrity stent on both wires. I was able to get past the first bend, but I could not advance the stent beyond the second bend due to the wire biasing. I made an attempt to put a third wire a 0.014 Prowater guidewire as a second barb wire but I suspect that the wire biasing from the first two wires may have distorted the anatomy of the ostial left circ to the point where the wire would not advance which it would. Therefore, I gave up further attempts to do that. I then attempted to deliver a 258 Integrity stent over the Choice PT, again, this would not advance beyond the secondary event. I then however was able to advance the 258 Integrity stent over the Prowater wire, advanced it to the lesion site, remove the Choice PT wire and deploy the stent with one inflation of 20 atmospheres for 25 seconds. Note, during balloon inflation and wiring of the vessel also the patient had a 6/10 chest pain that was the same pain she was having at home. The lesion went from 75% to 0% with MARE III flow. Repeat imaging was done with all equipment removed and left main, ostial, proximal, left circ all appear to be normal angiographically. CONCLUSION 1. Unstable angina. [place] Cardiovascular Society Class IV angina, culprit 75% stenosis in the proximal first obtuse marginal vessel. 2. Intent to perform FFR due to the details itemized above, was not able to advance the wire into the distal OM to proceed with FFR. 3. As the patient's chest pain was typical and the lesion was 70-75% in a fairly large vessel I did think it was medically necessary to proceed with PCI of the vessel without FFR. 4. Successful direct PCI bare metal stent of the proximal OM from 75% to 0% with MARE-III flow. 5. Chest pain. The patient's anginal chest pain was reproduced to a level of 6/10 with deployment of the stent. This was relieved after the stent balloon was deflated and removed. RECOMMENDATIONS 1. Continue aspirin 162 milligrams daily. Plavix 600 milligrams p.o. reload, then 75 milligrams daily for 12-14 months. Aggrastat drip per protocol and continue medical management of coronary artery disease, cardiac risk factor modification. MD VAMSI Lanier/SHARIFA /9:49 AM /10:17 PM
[2017-03-19 23:31] VITALS: BP 131/77; PULSE 78; PULSE 79; RESP 15; TEMP 98.6; O2SAT 93
[2017-03-20 03:12] VITALS: PULSE 65
[2017-03-20 04:35] VITALS: BP 102/63; PULSE 63; RESP 15; TEMP 98; O2SAT 95
[2017-03-20 05:36] LABS: AUTOMATED NEUTROPHIL # 4.4 TH/MM3 (1.8-7.7); BASOPHIL % 0.5 % (0.0-2.0); EOSINOPHIL # 0.2 TH/MM3 (0-0.4); EOSINOPHIL % 2.9 % (0.0-4.0); HEMATOCRIT 30.5 % (35.0-46.0); HEMO FLAGS DIFF FINAL; LYMPH % 24.6 % (9.0-44.0); LYMPHOCYTE # 1.7 TH/MM3 (1.0-4.8); MEAN CELL VOLUME 79.5 FL (80.0-100.0); MEAN CORPUSCULAR HEMOGLOBIN 25.7 PG (27.0-34.0); MEAN CORPUSCULAR HGB CONC 32.4 % (32.0-36.0); MONO % 6.8 % (0.0-8.0); NEUT % 65.2 % (16.0-70.0); PLATELET COUNT 265 TH/MM3 (150-450); RED BLOOD COUNT 3.84 MIL/MM3 (4.00-5.30); RED CELL DISTRIBUTION WIDTH 16.2 % (11.6-17.2); WHITE BLOOD COUNT 6.8 TH/MM3 (4.0-11.0)
[2017-03-20 05:46] LABS: BICARBONATE 28.7 MEQ/L (21.0-32.0); POTASSIUM 4.2 MEQ/L (3.5-5.1)
[2017-03-20 05:49] LABS: HDL CHOLESTEROL 40.7 MG/DL (40.0-60.0)
[2017-03-20 07:00] VITALS: BP 109/71; PULSE 63; RESP 18; TEMP 98.3; O2SAT 98
[2017-03-20] MEDS: METOPROLOL TARTRATE 100 MG TAB PO SCH (08:47)
[2017-03-20] MEDS ORDERED: ASPIRIN 81 MG CHEW TAB PO SCH (09:00)
[2017-03-20] MEDS ORDERED: TRIAMTERENE/HCTZ 37.5 MG/25 MG TAB PO SCH (09:00)
[2017-03-20] MEDS ORDERED: amLODIPine BESYLATE 5 MG TAB PO SCH (09:00)
[2017-03-20] MEDS ORDERED: CLOPIDOGREL 75 MG TAB PO SCH ×2 (09:00)
[2017-03-20] MEDS: cloNIDine HCL 0.2 MG TAB PO SCH (10:12)
[2017-03-20] MEDS: VALSARTAN 160 MG TAB PO SCH (10:13)
[2017-03-20] MEDS: SODIUM CHLORIDE 0.9% FLUSH 10 ML FLUSH SCH (10:14)
[2017-03-20] MEDS: CARVEDILOL 12.5 MG TAB PO SCH (10:14)
--- NOTE | 2017-03-20 15:26 | EKG ---
Date Performed: 03/20/2017 Time Performed: 07:12:50 PTAGE: 66 years EKG: Slight changes of early repolarization Otherwise within normal limits Since previous tracin g, no significant change noted Borderline ECG PREVIOUS TRACING : 03/19/2017 08.14 DOCTOR: Jas Monteiro Interpretating Date/Time 03/20/2017 15:24:45
== END 2017-03-20 10:40 | disposition home or self-care (01) ==
LOC: HDIC 07:19 → HDOC 07:19 → HCVR 15:33 → HDOC 03-20 10:40
PROVIDERS: ATTEND Internal Medicine Interventional Cardiology
DX: I25.110 Atherosclerotic heart disease of native coronary artery with unstable angina pectoris (principal); I10 Essential (primary) hypertension; I65.29 Occlusion and stenosis of unspecified carotid artery
CPT/HCPCS: 80048; 80061; 82550; 85002; 85025; 85610; 85730; 92928; 93005; 93454; C1725; C1769; C1876; C1887; C1893; J0153; J1644; J2250; J3010; J3246; 85347; Q9967